=== PATIENT | male | born 1970 ===

== ENCOUNTER 2018-09-05 00:21 | Emergency (ER) | payer BC, OTHER ==
[2018-09-05 00:22] VITALS: BMI 41.9
[2018-09-05 00:49] VITALS: BP 116/69; PULSE 70; RESP 18; TEMP 98; O2SAT 99
--- NOTE | 2018-09-05 00:50 | C.PDOC ---
History Of Present Illness 48 year old male states he was mopping the floor at work when the mop head became loose causing him to lose his balance, stumble, hit the left side of his head on the wall and landed on his left knee. Patient is currently complaining of pain to the left knee, reports feeling a little dazed after hitting his head but no LOC. Denies dizziness, nausea, vomiting, or headache. Time Seen by Provider: 09/05/18 00:37 Chief Complaint (Nursing): Dizziness/Lightheaded History Per: Patient History/Exam Limitations: no limitations Onset/Duration Of Symptoms: Hrs Current Symptoms Are (Timing): Still Present Recent travel outside of the [place]: No Past Medical History Reviewed: Historical Data, Nursing Documentation, Vital Signs Vital Signs: Last Vital Signs Temp 98 F 09/05/18 00:27 Pulse 70 09/05/18 00:27 Resp 18 09/05/18 00:27 BP 116/69 09/05/18 00:27 Pulse Ox 99 09/05/18 00:27 Family History: States: Unknown Family Hx - Social History Hx Alcohol Use: No Hx Substance Use: No - Immunization History Hx Tetanus Toxoid Vaccination: No Hx Influenza Vaccination: No Hx Pneumococcal Vaccination: No Review Of Systems Gastrointestinal: Negative for: Nausea, Vomiting Musculoskeletal: Positive for: Other (Left knee pain) Neurological: Negative for: Weakness, Numbness, Headache, Dizziness Physical Exam - Physical Exam Appears: Non-toxic Skin: Normal Color, Warm Head: Atraumatic, Normacephalic Eye(s): bilateral: Normal Inspection, PERRL, EOMI Nose: Normal Oral Mucosa: Moist Neck: Normal, No Midline Cervical Tenderness, No Paracervical Tenderness, Supple Extremity: Normal ROM (x4), Other (Tenderness with palpation of left mid anterior knee. No swelling, deformity, erythema, or ecchymosis.) Pulses: Left Dorsalis Pedis: Normal, Right Dorsalis Pedis: Normal Neurological/Psych: Oriented x3, Normal Speech, Normal Motor, Normal Sensation Gait: Steady ED Course And Treatment O2 Sat by Pulse Oximetry: 99 (Room air) Pulse Ox Interpretation: Normal Progress Note: Motrin administered for pain. Patient placed in knee brace by RN for support. I discussed the risk (radiation) and benefit (finding a problem needing surgery) with the patient. The patient is acting normally and has a normal neurological exam. The likelihood of finding a lesion needing intervention on the CT scan is extremely low. Patient agrees that at this time no CT scan will be done. If there is any change or new concern, the patient will return to the ED for further evaluation. Disposition Counseled Patient/Family Regarding: Diagnosis, Need For Followup, Rx Given - Disposition Referrals: [facility] [Outside] Disposition: HOME/ ROUTINE Disposition Time: 00:47 Condition: STABLE Additional Instructions: MOTRIN FOR PAIN APPLY ICE TO AREA LEG ELEVATION KNEE BRACE FOR SUPPORT FOLLOW UP WITH YOUR DOCTOR IN A FEW DAYS FOR REEVALUATION RETURN TO ER IF WORSENING PAIN, WEAKNESS, NUMBNESS, DIZZINESS OR WORSE Prescriptions: Ibuprofen [Motrin Tab] 800 mg PO QID #20 tab Instructions: Concussion, Adult (DC), Minor Head Injury (DC) Forms: [employer] (Surinamese), Work Excuse - Clinical Impression Clinical Impression: Head injury, Contusion of left knee - PA / [employer]LECT[employer]PER[employer] / Resident Statement MD/DO has reviewed & agrees with the documentation as recorded. - Scribe Statement The provider has reviewed the documentation as recorded by the Scribscottie Armijo All medical record entries made by the Bridgetibscottie were at my direction and personally dictated by me. I have reviewed the chart and agree that the record accurately reflects my personal performance of the history, physical exam, medical decision making, and the department course for this patient. I have also personally directed, reviewed, and agree with the discharge instructions and disposition.
== END 2018-09-05 00:57 | disposition home or self-care (01) ==
LOC: C.ER 00:21
DX: S80.02XA Contusion of left knee, initial encounter (principal); S09.90XA Unspecified injury of head, initial encounter; W01.0XXA Fall on same level from slipping, tripping and stumbling without subsequent striking against object, initial encounter; Y93.E5 Activity, floor mopping and cleaning; Y92.89 Other specified places as the place of occurrence of the external cause; Y99.0 Civilian activity done for income or pay